=== PATIENT | female | born 1980 | race African-American/Black ===

== ENCOUNTER 2021-03-22 20:58 | Emergency (ER) | payer MEDICAID ==
[~2021-03-22] VITALS: Ht 170.2 cm; Wt 120.0 kg
[2021-03-22 21:04] VITALS: BP 123/83
[2021-03-22] MEDS ORDERED: IBUPROFEN 600 MG TABLET PO ONE (21:30)
[2021-03-22] MEDS ORDERED: IBUPROFEN 600 MG TABLET ONE (21:33)
== END 2021-03-22 22:16 | disposition home or self-care (01) ==
LOC: ED 22:15
DX: J06.9 Acute upper respiratory infection, unspecified (principal); Z20.822 Contact with and (suspected) exposure to COVID-19; R07.9 Chest pain, unspecified; R59.0 Localized enlarged lymph nodes
CPT/HCPCS: 71045; 87081; 87880; 99284; U0003; U0005